=== PATIENT | male | born 1975 | race Caucasian/White ===

== ENCOUNTER 2016-10-12 11:23 | Emergency (ER) | payer BC ==
[~2016-10-12] VITALS: Ht 180.3 cm; Wt 106.0 kg
--- OUTSIDE RECORDS SUMMARY | 2016-10-12 11:27 | XMS REPORT ---
Author Author GENERATED, SYSTEM Organization Unknown Address Unknown Phone Unavailable Care Team Providers Care Medical Policy Specialist Name Role Phone MD FLORENCE TIMOTHY [phone] Reason For Visit Reason for Visit from 03/25/2015 9:30 AM:Pt Stated Reason for Adm : "lump in my right armpit" Chief Complaint RIGHT AXILLARY MASS,ORIF HUMERUS Social History Social History from 03/25/2015 11:48 AM:Tobacco Use? : Former SmokerSocial History from 03/25/2015 9:30 AM:Tobacco Use? : Former Smoker Functional Status Functional Status from 03/25/2015 12:20 PM:LOC : AlertFunctional Status from 03/25 12:10 PM:LOC : AlertFunctional Status from 03/25/2015 11:39 AM:LOC : Alert, DrowsyFunctional Status from 03/25/2015 9:30 AM:LOC : AlertOriented To : Person, Place,Time,EventWeight Bearing Status : FullAssist Level : Independent# Assists : Independent Vital Signs Hospital Vital Signs from 03/25/2015 12:45 PM:Height : 6/0 ft,inTemperature : 98.4 FPulse : 75Respirations : 16BP : 123/87Hospital Vital Signs from 03/25/2015 12:30 PM:Height : 6/0 ft,inPulse : 70Respirations : 16BP : 130/88Hospital Vital Signs from 03/25/2015 12:18 PM:Height : 6/0 ft,inTemperature : 98.4 FPulse : 69Respirations : 16BP : 128/96Hospital Vital Signs from 03/25/2015 12:00 PM: Heart Rate : 75Resp Rate : 20Systolic BP (mmHg) : 130Diastolic BP (mmHg) : 84Mean BP (mmHg) : 96O2 Saturation (%) : 97Hospital Vital Signs from 03/25/2015 11:55 AM:Heart Rate : 77Resp Rate : 33Systolic BP (mmHg) : 131Diastolic BP (mmHg ) : 70Mean BP (mmHg) : 93O2 Saturation (%) : 97Hospital Vital Signs from 2014 11:50 AM:Heart Rate : 87Resp Rate : 9Systolic BP (mmHg) : 133Diastolic BP ( mmHg) : 72Mean BP (mmHg) : 100O2 Saturation (%) : 97Hospital Vital Signs from 11:45 AM:Temp : 97.4Heart Rate : 88Resp Rate : 8Systolic BP (mmHg) : 128Diastolic BP (mmHg) : 84Mean BP (mmHg) : 96O2 Saturation (%) : 97Hospital Vital Signs from 03/25/2015 9:30 AM:Weight : 100/ kgHeight : 6/0 ft,inHospital Vital Signs from 03/25/2015 9:14 AM:Weight : 98.6/ kgHeight : 5/10.5 ft, inTemperature : 98.7 FPulse : 78Respirations : 18BP : 126/93 Results Problems Encounter Diagnosis No relevant problems exist. Encounters Encounter Diagnosis No relevant problems exist. Plan of Care Follow-up Appointments from 03/25/2015 11:48 AM:#1 Office appointment: : Alec- keep appt as previously made#1 Date/Time : 03/31/2015 12:00 AMAddress # 1 : [facility]: [address] [place]- or [phone] Procedures Completed excision right axillary mass, Right, by MD MARCEL JOYA, on 03/25/2015 11:10 AMCompleted , on 04/03/2010 12:00 AMCompleted , on 04/03/2010 12:00 AM Immunizations No immunizations administered or ordered. Hospital Course Hospital Discharge Instructions How to care for yourself at home from 03/25/2015 11:48 AM:Discharge Activity : Activity as tolerated,Do not engage in sports, heavy work or heavy lifting until your physician gives permissionDo not drive or operate machinery for: : today and while taking pain medicationDischarge Diet : As before hospitalization ,Diet as toleratedDischarge Diet: : RegularDischarge Wound Care : Keep dressings dry,Notify your physician if the following develops: redness, swelling , drainage or color of drainage changes, odor or increased pain.Remove dressing in: : 3 daysCall your doctor if: : Fever over 101 F or severe chills,Tingling or numbness develops,You have persistent or worsening symptomsSpecific Discharge Teaching Instructions provided: : NoDischarge on Warfarin : No Allergies, Adverse Reactions, Alerts No Latex Allergy.No IV Contrast Allergy.No Known Drug Allergies. Medication Medication reconciliation has not been performed.
--- OUTSIDE RECORDS SUMMARY | 2016-10-12 11:29 | XMS REPORT ---
Author Author GENERATED, SYSTEM Organization Unknown Address Unknown Phone Unavailable Care Team Providers Care Spinneret Person Name Role Phone MD FLORENCE TIMOTHY [phone] Reason For Visit Reason for Visit from [...] : 03/31/2015 12:00 AMAddress # 1 : [facility]: [address] [place], [place]- or Procedures Completed excision right axillary mass, Right, [...]
[2016-10-12] MEDS ORDERED: CTLP20T PO (11:39)
[2016-10-12] MEDS ORDERED: OMEP20TA PO (11:39)
[2016-10-12] MEDS ORDERED: LIDOCAINE 1% (XYLOCAINE) 20 ML VIAL INJ ONE (11:55)
[2016-10-12] MEDS ORDERED: BACITRACIN OINTMENT 0.9 GM PACKET TOP ONE (12:25)
[2016-10-12 13:46] VITALS: BP 141/79
== END 2016-10-12 13:00 | disposition home or self-care (01) ==
LOC: ED 11:26
DX: S61.211A Laceration without foreign body of left index finger without damage to nail, initial encounter (principal); W26.0XXA Contact with knife, initial encounter; Y93.89 Activity, other specified; Y92.009 Unspecified place in unspecified non-institutional (private) residence as the place of occurrence of the external cause
CPT/HCPCS: 12001; 99282